=== PATIENT | female | born 1980 | race African-American/Black ===

== ENCOUNTER 2023-03-06 12:56 | Day surgery (SDC) | payer OTHER, SELFPAY ==
[2023-03-06] VITALS (19 sets, daily range): BP systolic 119–151; BP diastolic 74–114; PULSE 72–133; RESP 15–20; TEMP 35.9–36.8; O2SAT 97–100; BMI 25.0
--- NOTE | 2023-03-06 14:17 | CRLHL7_ITS ---
For Patients: As a result of the Century Cures Act, medical imaging exams and procedure reports are released immediately into your electronic medical record. You may view this report before your referring provider. If you have questions, please contact your health care provider. INDICATION: Right lower quadrant pain for 12 hours. COMPARISON: None. TECHNIQUE: CT scan of the abdomen and pelvis was performed following the intravenous administration of 76 mL of Isovue-370. FINDINGS: Lung bases: Clear. Hepatobiliary: Too small to accurately characterize low-density lesion within the anterior left lower lobe, likely cyst. No intrahepatic duct dilatation. Normal gallbladder and common bile duct. Pancreas, spleen and adrenal glands: Normal. Kidneys, ureters and urinary bladder: Unremarkable. No renal stone, focal renal lesion or hydronephrosis. Unremarkable on opacified urinary bladder. Reproductive: The uterus and left adnexa are unremarkable. The right ovary is enlarged and heterogeneous in appearance measuring approximately 5.0 cm x 3.5 cm x 3.5 cm. This may be secondary to an enlarged multi cystic ovary, ovarian torsion or other ovarian mass. Further evaluation with pelvic ultrasound is recommended. GI tract: The stomach, small bowel and colon are unremarkable. There is high density material/calcifications within the appendix which has a normal caliber. No periappendiceal inflammation or other evidence of acute appendicitis is present. Peritoneal cavity: There is a small volume of low-density ascites within the posterior cul-de-sac. No free intraperitoneal air. Lymphovascular: No lymphadenopathy. Normal caliber abdominal aorta. Abdominal wall: 13 mm focus of increased density within anterior abdominal wall subcutaneous fat just inferior and to the right of the umbilicus, indeterminate but likely secondary to medication injection or other trauma. No abdominal wall hernia. Bones: No fracture or suspicious bone lesion. IMPRESSION: 1. Enlarged heterogeneous right ovary with low-density fluid within the posterior cul-de-sac. This may be secondary to an enlarged multi cystic ovary, ovarian torsion or other ovarian mass. Further evaluation with pelvic ultrasound is recommended. 2. No acute appendicitis. Please note that all CT scans at this facility use dose modulation, iterative reconstruction, and/or weight-based dosing when appropriate to reduce radiation dose to as low as reasonably achievable. Dictated by Twin Nolen MD @ 03/06/2023 4:02:37 PM (Electronically Signed)
--- NOTE | 2023-03-06 14:18 | ED_ITS ---
HPI - Abdominal Pain General Chief Complaint: Abdominal Pain Stated Complaint: R side pain, nausea Time Seen by Provider: 03/06/23 14:12 History of Present Illness HPI narrative: This 42-year-old female comes in with abdominal pain. She went to a clinic appointment and was sent here because of right lower quadrant abdominal pain that may be due to appendicitis. She states that the pain began at about 3:00 a.m. this morning, 11 hours prior to arrival. She has increased pain when st anding up straight. Her pain is located in the right lower quadrant. She has been having some diarrhea a preexistent to this current pain. She does report some nausea. She has not had any fevers. She denies any possibility of as she had a hysterectomy a few months ago. Related Data Home Medications Medication Instructions Recorded Confirmed lamotrigine 25 mg tablet 75 mg PO DAILY 03/06/23 03/06/23 levothyroxine 100 mcg tablet 100 mcg PO DAILY 03/06/23 03/06/23 liothyronine 5 mcg tablet 5 mcg PO DAILY 03/06/23 03/06/23 Allergies Allergy/AdvReac Type Severity Reaction Status Date / Time latex Allergy Mild Rash Verified 03/06/23 14:39 Review of Systems Status of ROS Reports: 10 or more systems reviewed and unremarkable except as noted in History and below Narrative Constitutional: No fevers, no weight gain or loss. Eyes: No discharge. No vision changes. HENT: No congestion, no sore throat, no ear pain. Cardiovascular: No chest pain, no palpitations. Respiratory: No shortness of breath, no wheezes, no cough. Gastrointestinal: Right lower quadrant abdominal pain. Genitourinary: No dysuria, no hematuria. Musculoskeletal: Normal range of motion. Skin: No rashes, no pruritis. Neurological: No dizziness, weakness, sensory change, speech change. Endo/Heme/Allergies: No bruising or bleeding. No polydipsia. Pysch: no suicidality, no anxiety, no insomnia. All other systems reviewed and are negative. PFSH PFS Social History Smoking Status: Never smoker Do you use any of these nicotine containing products: None Second hand tobacco smoke exposure: Yes How often do you have a drink containing alcohol: 2-3 times a week How many standard drinks containing alcohol do you have on a typical day: 1 or 2 How often do you have six or more drinks on one occasion: Never AUDIT-C Alcohol total score: 3 Non-prescribed substance use: denies use Exam Narrative: Exam Narrative: Constitutional: Well-developed, well-nourished, no acute distress. HEENT: Normocephalic, atraumatic. Neck: Normal range of motion. Nontender. Supple. Heart: Regular. No murmurs. Normal rate. Intact distal pulses. Lungs: Clear to auscultation. No chest discomfort. No wheezes, rhonchi, or rales. Abdomen: Decreased bowel sounds. Pain localized in the right lower quadrant. Rovsing sign is positive. Mild rebound tenderness. Genitalia: Deferred. Back: No midline tenderness. Normal range of motion. Extremities: Normal range of motion. No injury. Skin: Intact. No rash. Warm. No erythema or pallor. Neurologic: No altered sensation. No weakness. Alert and oriented. Psychiatric: No suicidality. No anxiety or depression. No insomnia. Nursing notes and vitals signs are reviewed. Const: Vital Signs, click to edit/add: Vital Signs - 24 hr 03/06/23 13:39 03/06/23 16:10 Temperature 96.7 F L Pulse Rate [Pulse Oximeter] 80 78 Respiratory Rate 17 18 Blood Pressure [Ri ght Upper Arm] 130/98 H 132/86 Pulse Oximetry 100 98 Oxygen Delivery Me thod Room Air Room Air Course Vital Signs Vital signs: Initial Vital Signs Temperature 96.7 F L 03/06/23 13:39 Temperature Source Temporal Artery Scan 03/06/23 13:39 Pulse Rate 80 03/06/23 13:39 Respiratory Rate 17 03/06/23 13:39 Blood Pressure 130/98 H 03/06/23 13:39 Blood Pressure Mean 108 H 03/06/23 13:39 Pulse Oximetry 100 03/06/23 13:39 Oxygen Delivery Method Room Air 03/06/23 13:39 Vital Signs Temperature 96.7 F L 03/06/23 13:39 Pulse Rate 80 03/06/23 13:39 Respiratory Rate 17 03/06/23 13:39 Blood Pressure 130/98 H 03/06/23 13:39 Pulse Oximetry 100 03/06/23 13:39 Oxygen Delivery Method Room Air 03/06/23 13:39 Temperature 96.7 F L 03/06/23 13:39 Pulse Rate 78 03/06/23 16:10 Respiratory Rate 18 03/06/23 16:10 Blood Pressure 132/86 03/06/23 16:10 Pulse Oximetry 98 03/06/23 16:10 Oxygen Delivery Method Room Air 03/06/23 16:10 MDM - Abdominal Pain MDM Narrative Medical decision making narrative: This patient comes in with severe right lower quadrant abdominal pain. An IV was established where she received 2 doses of Dilaudid 0.5 mg. This did not bring much relief to her pain. CT imaging of the abdomen and pelvis does rule out appendicitis but there is suspicion for ovarian cyst. Given the severity of patient's pain it seems that she could be having ovarian torsion. Ultrasound was then ordered and does confirm in fact a right ovarian torsion. I did speak with the medical van driver physician on-call, Dr. Moss, who plans to take her to laparoscopic surgery for oophorectomy. After returning from her ultrasound the patient also received fentanyl 50 mcg intravenously. This brought better relief to her pain. Lab Data Labs: Lab Results 03/06/23 Range/Units 14:25 WBC 10.87 (4.50-11.00) K/uL RBC 4.59 (4.00-5.20) m/uL Hgb 13.9 (12.0-16.0) gm/dL Hct 41.3 (33.0-51.0) % MCV 90 (80-100) fL MCH 30 (26-34) pg MCHC 34 (32-36) gm/dL RDW Coeff of Luiza 12.8 (11.5-15.5) % Plt Count 319 (140-440) K/uL Neut % (Auto) 91.1 H (42.0-72.0) % Lymph % (Auto) 6.2 L (20-44) % [place] % (Auto) 2.3 (0.0-11.0) % Eos % (Auto) 0.0 (0.0-7.0) % Baso % (Auto) 0.2 (0.0-3.0) % Neut # (Auto) 9.90 H (1.7-7.0) K/uL Lymph # (Auto) 0.70 L (0.90-2.90) K/uL [place] # (Auto) 0.30 (0.00-0.90) K/UL Eos # (Auto) 0.00 (0.00-0.50) K/uL Baso # (Auto) 0.02 (0.00-0.30) K/uL Abs Immat Gran (auto) 0.02 (0.00-0.30) K/uL Imm/Tot Granulo (auto) 0.2 % Sodium 134 L (135-149) mmol/L Potassium 4.1 (3.6-5.1) mmol/L Chloride 103 (96-114) mmol/L Carbon Dioxide 18 L (20-32) mmol/L BUN 10 (5-24) mg/dL Creatinine 1.0 (0.5-1.5) mg/dL Estimated Creat Clear 69.31 Estimated GFR 73 ml/min Glucose 75 (60-115) mg/dL Calcium 9.5 (8.4-10.6) mg/dL Imaging Data CT scan - abdomen: Radiologist's impression: 1. Enlarged heterogeneous right ovary with low-density fluid within the posterior cul-de-sac. This may be secondary to an enlarged multi cystic ovary, ovarian torsion or other ovarian mass. Further evaluation with pelvic ultrasound is recommended. 2. No acute appendicitis. US - abdomen: Radiologist's impression: Abnormal right ovary, with no detectable Doppler blood flow, very likely representing ovarian torsion. Associated free fluid is noted. Discharge Plan Discharge Clinical Impression: Ovarian torsion Patient Disposition: XFER to OR Condition: Unchanged Prescriptions: No Action levothyroxine 100 mcg tablet 100 mcg PO DAILY liothyronine 5 mcg tablet 5 mcg PO DAILY lamotrigine 25 mg tablet 75 mg PO DAILY Follow Up/Referrals: Provider,Not a Local [Primary Care Provider] -
[2023-03-06] MEDS: HYDROmorphone 0.5 mg/0.5 ml inj IVP ×4 (14:45→21:22)
[2023-03-06] MEDS: ONDANSETRON 2 MG/ML inj 4 MG IVP (14:45)
[2023-03-06 15:12] LABS: Basophils Absolute Auto 0.02 K/uL (0.00-0.30); Basophils Percent Auto 0.2 % (0.0-3.0); Hematocrit 41.3 % (33.0-51.0); Hemoglobin* 13.9 gm/dL (12.0-16.0); Immature Granulocytes Abs Auto 0.02 K/uL (0.00-0.30); Immature Granulocytes Pct Auto 0.2 %; Lymphocytes Percent Auto 6.2 % (20-44); Mean Corpuscular HGB Conc 34 gm/dL (32-36); Mean Corpuscular Hemoglobin 30 pg (26-34); Mean Corpuscular Volume 90 fL (80-100); Monocytes Percent Auto 2.3 % (0.0-11.0); Neutrophils Percent Auto 91.1 % (42.0-72.0); Platelet Count* 319 K/uL (140-440); RDW Coefficient of Variation % 12.8 % (11.5-15.5); Red Blood Count 4.59 m/uL (4.00-5.20); White Blood Count* 10.87 K/uL (4.50-11.00)
[2023-03-06 15:13] LABS: Slide Review Reflex No
[2023-03-06 15:29] LABS: Chloride* 103 mmol/L (96-114)
[2023-03-06 15:30] LABS: Potassium* 4.1 mmol/L (3.6-5.1); Sodium* 134 mmol/L (135-149)
[2023-03-06 15:32] LABS: Est. Creatinine Clearance* 69.31; Estimated Glomerular Filt Rate 73 ml/min
[2023-03-06 15:33] LABS: Blood Urea Nitrogen* 10 mg/dL (5-24); Calcium* 9.5 mg/dL (8.4-10.6); Carbon Dioxide* 18 mmol/L (20-32); Glucose* 75 mg/dL (60-115)
[2023-03-06] MEDS: 0.9 % SODIUM CHLORIDE 1000 ml 1,000 ML IV (15:38)
--- NOTE | 2023-03-06 16:10 | CRLHL7_ITS ---
For Patients: As a result of the Century Cures Act, medical imaging exams and procedure reports are released immediately into your electronic medical record. You may view this report before your referring provider. If you have questions, please contact your health care provider. INDICATION: PELVIC PAIN, RT OV CYST/TORSION? LIMITED PELVIC ULTRASOUND Technique: The exam was significantly limited due to patient discomfort. Limited sonographic evaluation of the right ovary was performed, including color and spectral Doppler scanning. Comparison: 03/06/2023 CT abdomen and pelvis. Findings: The right ovary is mildly enlarged, measuring 4.9 x 3.6 x 4.1 centimeters. The right ovary is heterogeneous in echotexture. No detectable blood flow is seen within the right ovary. Free fluid is noted adjacent to the right ovary. IMPRESSION: Abnormal right ovary, with no detectable Doppler blood flow, very likely representing ovarian torsion. Associated free fluid is noted. Results were called to Dr. Gandara at 5:07 p.m. on 03/06/2023. ADITYA ROSENBERG MD [facility] Dictated by Darrian Rosenberg MD @ 03/06/2023 5:11:41 PM Dictated by: Darrian Rosenberg MD @ 03/06/2023 17:12:53 (Electronically Signed)
[2023-03-06] MEDS: fentaNYL 100 MCG/2 ML inj 50 MCG IVP ×4 (17:09→19:53)
--- NOTE | 2023-03-06 19:07 | W.PM.GYNPROC ---
Procedure Note Time Seen by Provider: 19:07 Date of procedure: 03/06/23 Pre-op diagnosis: Ovarian torsion right-sided Post-op diagnosis: same Procedure: Laparoscopic right oophorectomy Anesthesia: GETA Complications: None Surgeon: Dr. Charles amezcua Estimated blood loss (mL): 50 Pathology: specimen obtained, sent to pathology Condition: stable Disposition: observation Findings: Torsed right ovary Procedure Description: Patient was brought into the operating room placed in the operative table in spine position where general intubated anesthesia was administered. Patient was then placed in lithotomy position prepped and draped in usual fashion. All preparations were made a Haley was put in. A Veress needle was then placed infraumbilically to allow for abdominal insufflation. 5 mm trocar and cannula were then put into this incision and allowed him to the abdominal cavity. The laparoscopic then replaced the trocar and was viewed the abdominal cavity was entered without incident. The right ovary was then visualized and found to be torsed 3 times. 5 mm trocar was put in the left lower quadrant under direct visualization. And then a 10 mm with puts suprapubically in the center. LigaSure was then used to excise the torsed ovary without difficulty. The ureter was identified throughout the entire course of the pelvis and nowhere near my surgical site. An Endo-Catch bag was then put through the 10 mm port and the ovary was put into the bag and removed through the 10 mm port. A ligature Passer was then used to close the 10 mm suprapubic incision with 0 Vicryl. The abdominal cavity was copiously irrigated and drained and found to be hemostatically secure. All pressure was then released and all surgical sites were inspected with 0 pressure and found to be hemostatically secure. All trocars were then removed from the abdominal cavity. All skin incisions were closed with subcutaneous running stitches of 4-0 Monocryl. Patient was brought down from lithotomy position reversed from general anesthesia and extubated 1 spontaneous respirations were noted.
[2023-03-06] MEDS: diphenhydrAMINE 50 MG/ML inj 25 MG IVP (19:30)
--- NOTE | 2023-03-06 19:33 | P.ANES_ITS ---
Anesthesia Charges Start Date/Time Anesthesia Start Date: 03/06/23 Anesthesia Start Time: 17:57 Stop Date/Time Anesthesia Stop Date: 03/06/23 Anesthesia Stop Time: 19:24 Summary Emergency: ENVIRONMENTAL SCIENCE TECHNICIAN
--- NOTE | 2023-03-06 20:34 | SUR.PHASEI ---
patient met discharge criteria per anesthesia
[2023-03-06] MEDS: IBUPROFEN 600 MG TABLET PO (21:21)
[2023-03-06] MEDS: HYDROCODONE/ACETAMIN 7.5-325 TABLET 1 TAB PO (22:46)
--- NOTE | 2023-03-06 23:16 | PC.NURSE ---
Addendum entered by Janet Nichole RN 03/06/23 23:34: Patient's friend attempts to fill script for pain medications, but is unsuccessful. Patient requests that friend keep script for safekeeping to fill in AM. Original Note: Arrival from [facility] 2029- Patient arrives rates pain at 5/10, which increases somewhat as time goes on. Pain medication administered with some stated relief. She is 4-7/10 this evening. She is tolerating eating and drinking without issue. She is voiding, up with SBA. Lap sites open to air without drainage.
[2023-03-07] VITALS: BP 133/79; PULSE 115; RESP 16; TEMP 36.6; O2SAT 97
[2023-03-07] MEDS: HYDROCODONE/ACETAMIN 7.5-325 TABLET 1 TAB PO ×2 (02:38→06:34)
[2023-03-07] MEDS: IBUPROFEN 600 MG TABLET PO ×2 (02:38→08:16)
[2023-03-07] MEDS: LEVOTHYROXINE 100 MCG TABLET PO (06:34)
--- NOTE | 2023-03-07 07:02 | PC.NURSE ---
Pt pleasant and cooperative. 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 Pain controlled with [place] and Ibuprofen. Tolerating a reg diet. Voiding without difficulty. Will dc this am.
[2023-03-07 08:34] VITALS: PULSE 89; RESP 16
--- NOTE | 2023-03-07 11:00 | PC.NURSE ---
Patient reported some discomfort to R abdomen. discussed gas used during lap procedures and ways to relieve discomfort. pain did decrease with ibuprofen. reviewed pain control at home. Ultram already sent yesterday 03/06 and pt verbalized family had picked up. sister at ED entrance for transport home. discussed s/s of infection to report, numbers to call if any concerns, f/u appt, safety at home, shower/bathing recommendations. Pt verbalized understanding. discussed return to work plan will be addressed at f/u appointment. patient verbalized understanding. IV removed without issue. Pt steady on feet and stable at d/c. pt discharged at 1039 via w/c. room clear of belongings at d/c.
== END 2023-03-07 10:39 | disposition home or self-care (01) ==
LOC: ED 17:21 → SS 17:56 → MEDSURG 19:00
PROVIDERS: Emergency Provider Emergency Medicine Emergency Medical Services; Visit Provider Specialist
PROC: (CPT 58661; principal; 2023-03-06 17:30)
DX: N83.511 Torsion of right ovary and ovarian pedicle (principal)
CPT/HCPCS: 58661; 36415; 74177; 76830; 80048; 840; 85025; 88305; 93976; 99140; 99284; 99285; A9270; J0330; J1100; J1170; J1200; J1885; J2405; J2704; J2710; J3010; J3475; J3490; J7030; Q9967